=== PATIENT | male | born 1950 | race Caucasian/White ===

== ENCOUNTER → 2016-07-06 | Outpatient (CLI) | payer OTHER ==
[~2016-07-06] MED LIST: PRED-301 PO
[2016-07-06 17:41] LABS: MANUAL MICROSCOPIC REQUIRED? NO; REVIEW REQ? NO; URINE APPEARANCE CLEAR (CLEAR); URINE BILIRUBIN NEG (NEG); URINE COLOR YELLOW; URINE EPITHELIAL CELL AUTO 0-5 /lpf (0-5); URINE NITRITE NEG (NEG); URINE SPECIFIC GRAVITY 1.014 (1.000-1.030); UROBILINOGEN NEG (NEG); ZZUR CULT IF INDIC CLEAN CATCH NO
[2016-07-06 18:08] LABS: URINE PROTIEN/CREAT RATIO 0.1 (0-0.2); URINE TOTAL PROTEIN 11.3 mg/dl (0-11.9)
== END | disposition home or self-care (01) ==
LOC: C.LAB1850 15:56
PROVIDERS: ATTEND Internal Medicine Nephrology
DX: R31.29 Other microscopic hematuria (principal)

== ENCOUNTER → 2016-07-08 | Outpatient (CLI) | payer OTHER ==
--- NOTE | 2016-07-08 16:31 | DIAGNOSTIC IMAGING REPORT ---
ULTRASOUND KIDNEYS AND BLADDER CLINICAL HISTORY: Microscopic hematuria. COMPARISON STUDY: No priors. TECHNIQUE: Real-time, grayscale, and color flow sonography of the kidneys and bladder is performed. Images are reviewed in the transverse and longitudinal planes. FINDINGS: Kidneys: The kidneys are normal in size and echotexture. The right kidney measures 11.5 x 6.5 x 5.3 cm and the left kidney measures 11.0 x 5.4 x 6.1 cm. There is no hydronephrosis. No shadowing renal calculi are identified. A 2.6 cm exophytic cyst arises from the interpolar left kidney. A solid-appearing lesion arises from the upper pole of the left kidney and measures 5.7 cm. No perinephric fluid is identified. Bladder: The bladder is normal in appearance. Bilateral ureteral jets were seen. Upper abdomen: Survey images of the liver demonstrate hepatomegaly and hepatic steatosis. IMPRESSION: 1. The kidneys are normal in size and without hydronephrosis. 2. A 5.7 cm solid-appearing lesion arises from the upper pole of the left kidney. Renal mass is to be excluded. Follow-up with a contrast-enhanced renal mass protocol CT scan is recommended for further assessment. 3. The bladder is normal as visualized. 4. Hepatic steatosis. Electronically signed by: Florencio Mcdonald M.D. 07/08/2016 4:30 PM Dictated Date/Time: 07/08/2016 4:24 PM
== END | disposition home or self-care (01) ==
LOC: C.ULTR 15:45
PROVIDERS: ATTEND Internal Medicine Nephrology
DX: R31.29 Other microscopic hematuria (principal); N28.9 Disorder of kidney and ureter, unspecified; K76.0 Fatty (change of) liver, not elsewhere classified

== ENCOUNTER → 2016-07-22 | Outpatient (CLI) | payer OTHER ==
[~2016-07-22] MED LIST changes: +OPTIRAY 320 IV PRN
--- NOTE | 2016-07-22 15:11 | DIAGNOSTIC IMAGING REPORT ---
CT KIDNEY (ABDOMEN) COMBO CT DOSE: 1046.37 mGycm CLINICAL HISTORY: Left renal mass. Hematuria. TECHNIQUE: Unenhanced, nephrographic and delayed phase imaging of the abdomen was performed. Injection of 119 cc Optiray 320 IV was uneventful. COMPARISON STUDY: Chest CT February 16, 2016 and renal ultrasound July 08, 2016. FINDINGS: No renal calculi are present. There is no hydronephrosis. Note is made of a 5.2 cm cystic lesion arising from the medial upper pole of the left kidney which corresponds to the lesion shown on ultrasound of July 08, 2016. This lesion has a perceptible wall with no nodular component. An adjacent 2 cm lesion demonstrates no enhancement. This represents a hyperdense cyst. There is also a 2.3 cm hyperdense cyst within the lower pole of the left kidney. There are numerous subcentimeter lesions within both kidneys which are too small to characterize. There is no abdominal lymphadenopathy. No upper tract filling defects are identified. No suspicious osseous lesions are present. The liver, spleen, adrenal glands and pancreas are unremarkable. The caliber and wall thickness of visualized small and large bowel are normal. IMPRESSION: 1. 5.2 cm cystic lesion arising from the upper pole of the left kidney which represents to the lesion shown on prior ultrasound. This lesion has a perceptible wall with no nodular component. This lesion is indeterminate although a complex cyst is favored. This lesion is considered Bosniak 2F and a follow-up CT renal protocol in 6 months is recommended. 2. Several additional left renal lesions which represent hyperdense cysts. Numerous subcentimeter bilateral renal lesions are too small to characterize. Electronically signed by: Robert Waters M.D. 07/22/2016 3:10 PM Dictated Date/Time: 07/22/2016 9:23 AM
== END | disposition home or self-care (01) ==
LOC: C.CTS 08:52
PROVIDERS: ATTEND Internal Medicine Nephrology
DX: N28.89 Other specified disorders of kidney and ureter (principal); R31.29 Other microscopic hematuria

== ENCOUNTER → 2016-07-27 | Outpatient (CLI) | payer OTHER ==
[~2016-07-27] MED LIST changes: -OPTIRAY 320 IV PRN
== END | disposition home or self-care (01) ==
LOC: C.LAB1850 14:49
PROVIDERS: ATTEND Internal Medicine
DX: Z72.51 High risk heterosexual behavior (principal)

== ENCOUNTER → 2017-01-06 | Outpatient (CLI) | payer OTHER ==
--- NOTE | 2017-01-06 13:03 | DIAGNOSTIC IMAGING REPORT ---
(CHEST) THORAX WITH CLINICAL HISTORY: 66 years-old Male presenting with Moderate chronic obstructive pulmonary disease. TECHNIQUE: Multidetector CT imaging of the chest was performed after the administration of intravenous contrast. IV contrast: 119 mL of Optiray 320. A dose lowering technique was used consistent with the principles of ALARA (as low as reasonably achievable). COMPARISON: Chest x-ray from 10/23/2015. CT DOSE (mGy.cm): The estimated cumulative dose is 743.05 mGy.cm. FINDINGS: Mold Operator topogram: Unremarkable. On soft tissue windows, normal thyroid and thoracic inlet. No axillary, supraclavicular, hilar, or mediastinal lymphadenopathy. Minimal atherosclerosis of aortic arch. Normal heart size. Trace pericardial effusion. No pleural effusion. Exophytic left upper pole renal cyst noted. Focal subcentimeter hypodensity in the pancreatic neck body junction A represent focal fatty invagination or small cystic lesion. On lung windows, mild apical predominant emphysema. No focal infiltrate or nodule. Airways patent. Mild bronchial wall thickening may be present. On bone windows, degenerative changes of the thoracic spine. IMPRESSION: 1. Mild emphysematous changes predominantly at the apices and mild bronchial wall thickening are consistent with chronic obstructive pulmonary disease. No focal infiltrate or pulmonary nodule. Electronically signed by: Cordell Ho M.D. 01/06/2017 1:01 PM Dictated Date/Time: 01/06/2017 12:57 PM
== END | disposition home or self-care (01) ==
LOC: C.CTS 12:07
PROVIDERS: ATTEND Internal Medicine Pulmonary Disease
DX: J44.9 Chronic obstructive pulmonary disease, unspecified (principal)

== ENCOUNTER → 2017-01-06 | Outpatient (CLI) | payer OTHER ==
[~2017-01-06] MED LIST changes: +OPTIRAY 320 IV PRN
--- NOTE | 2017-01-06 12:58 | DIAGNOSTIC IMAGING REPORT ---
CT ABDOMEN COMBO CT DOSE: CLINICAL HISTORY: Microscopic hematuria. Renal mass. TECHNIQUE: Noncontrast images were obtained through the upper abdomen. A dynamic helical CT scan of the portal venous phase was performed during the injection 12 19 cc of Optiray 320. 5 minute delayed images through the upper abdomen were also acquired. A dose lowering technique was utilized adhering to the principles of ALARA. COMPARISON STUDY: 07/22/2016 FINDINGS: The visualized portions of the lung bases are unremarkable. No focal hepatic masses are visualized. There is no ductal dilatation. The gallbladder appears normal. No splenic masses are visualized. There is a stable 6 mm cyst within the pancreatic body, likely representing a side branch IPMN There are no transition zones indicate bowel obstruction. No acute inflammatory changes are visualized. There is no evidence of abdominal aortic dilatation. There is a stable 12 mm retrocrural cystic lesion. There is a 4.7 cm upper pole left renal cyst with a barely perceptible wall. Adjacent to this is a 16 mm slightly hyperdense cyst. There is a 23 mm mid pole left renal hyperdense cyst. There are additional small renal hypodensities which are felt to represent cysts. These remain stable. IMPRESSION: 1. Stable bilateral renal cysts. These include a 4.7 cm upper pole left renal cyst with a barely perceptible wall, but no nodularity. 12 month follow-up is recommended 2. 6 mm cyst within the pancreatic body, likely representing a side branch IPMN. This lesion can also be reevaluated in 12 months. Electronically signed by: Wilbur Arias M.D. 01/06/2017 12:57 PM Dictated Date/Time: 01/06/2017 12:49 PM
== END | disposition home or self-care (01) ==
LOC: C.CTS 12:11
PROVIDERS: ATTEND Internal Medicine Nephrology
DX: N28.89 Other specified disorders of kidney and ureter (principal); R31.29 Other microscopic hematuria; K86.2 Cyst of pancreas; J44.9 Chronic obstructive pulmonary disease, unspecified

== ENCOUNTER → 2017-01-26 | Outpatient (CLI) | payer OTHER ==
[~2017-01-26] MED LIST changes: -OPTIRAY 320 IV PRN
--- NOTE | 2017-01-26 14:48 | DIAGNOSTIC IMAGING REPORT ---
TWO VIEW CHEST CLINICAL HISTORY: Dyspnea on exertion. FINDINGS: PA and lateral chest radiographs are compared to study dated 10/23/2015 and correlated with chest CT dated 01/06/2017. The cardiomediastinal silhouette is unremarkable. Emphysema and chronic interstitial thickening are similar to previous. There is no airspace consolidation or pleural effusion. There is no pneumothorax. The bony thorax appears intact. IMPRESSION: Emphysema with no active disease in the chest. Electronically signed by: Florencio Mcdonald M.D. 01/26/2017 2:47 PM Dictated Date/Time: 01/26/2017 2:44 PM
[2017-01-26 15:24] LABS: BASO % 0.6 %; BASO ABS # 0.05 K/uL (0-0.2); COMPLETE YES; EOS % 1.4 %; HEMATOCRIT 44.1 % (42-52); IG% 0.3 %; LYMPH % 31.1 %; LYMPH ABS # 2.42 K/uL (1.2-3.4); MEAN CELL VOLUME 96.3 fL (80-100); MEAN CORPUSCULAR HEMOGLOBIN 34.3 pg (25-34); MEAN CORPUSCULAR HGB CONC 35.6 g/dl (32-36); MONO % 16.2 %; NEUT % 50.4 %; PLATELET COUNT 223 K/uL (130-400); RED BLOOD COUNT 4.58 M/uL (4.7-6.1); WHITE BLOOD COUNT 7.77 K/uL (4.8-10.8)
[2017-01-26 15:39] LABS: PARTIAL THROMBOPLASTIN RATIO 1.1; PROTHROMBIN TIME (PATIENT) 10.9 SECONDS (9.0-12.0)
[2017-01-26 15:51] LABS: ALT/SGPT 25 U/L (12-78); AST/SGOT 15 U/L (15-37); BLOOD UREA NITROGEN 11 mg/dl (7-18); BUN/CREATININE RATIO 14.1 (10-20); CALCIUM 8.6 mg/dl (8.5-10.1); CARBON DIOXIDE 27 mmol/L (21-32); CHLORIDE 105 mmol/L (98-107); CREATININE 0.76 mg/dl (0.60-1.40); GLUCOSE 80 mg/dl (70-99); MAGNESIUM 2.4 mg/dl (1.8-2.4); POTASSIUM 3.8 mmol/L (3.5-5.1); SODIUM 137 mmol/L (136-145); URINE APPEARANCE CLEAR (CLEAR); URINE BILIRUBIN NEG (NEG); URINE COLOR DK YELLOW; URINE EPITHELIAL CELL AUTO 0-5 /lpf (0-5); URINE NITRITE NEG (NEG); URINE SPECIFIC GRAVITY 1.023 (1.000-1.030); UROBILINOGEN NEG (NEG); ZZUR CULT IF INDIC CLEAN CATCH NO
[2017-01-26 15:54] LABS: ALB/GLOB RATIO 1.1 (0.9-2); ALKALINE PHOSPHATASE 81 U/L (45-117); PHOSPHORUS 2.8 mg/dl (2.5-4.9)
[2017-01-26 15:59] LABS: MANUAL MICROSCOPIC REQUIRED? NO; REVIEW REQ? NO
== END | disposition home or self-care (01) ==
LOC: C.RAD1850 14:02
PROVIDERS: ATTEND Internal Medicine
DX: R06.09 Other forms of dyspnea (principal); J44.9 Chronic obstructive pulmonary disease, unspecified

== ENCOUNTER → 2017-02-17 | Outpatient (CLI) | payer OTHER ==
[2017-02-17 18:10] LABS: BASO % 1.1 %; BASO ABS # 0.07 K/uL (0-0.2); COMPLETE YES; EOS % 1.8 %; HEMATOCRIT 42.6 % (42-52); IG% 0.3 %; LYMPH % 42.1 %; MEAN CELL VOLUME 96.4 fL (80-100); MEAN CORPUSCULAR HEMOGLOBIN 34.8 pg (25-34); MEAN CORPUSCULAR HGB CONC 36.2 g/dl (32-36); MEAN PLATELET VOLUME 9.7 fL (7.4-10.4); MONO % 12.8 %; NEUT % 41.9 %; PLATELET COUNT 200 K/uL (130-400); RED BLOOD COUNT 4.42 M/uL (4.7-6.1); WHITE BLOOD COUNT 6.18 K/uL (4.8-10.8)
[2017-02-17 18:20] LABS: ALT/SGPT 26 U/L (12-78); AST/SGOT 20 U/L (15-37); BLOOD UREA NITROGEN 9 mg/dl (7-18); BUN/CREATININE RATIO 12.8 (10-20); CALCIUM 8.1 mg/dl (8.5-10.1); CARBON DIOXIDE 27 mmol/L (21-32); CHLORIDE 104 mmol/L (98-107); CREATININE 0.69 mg/dl (0.60-1.40); GLUCOSE 81 mg/dl (70-99); POTASSIUM 4.2 mmol/L (3.5-5.1); SODIUM 138 mmol/L (136-145)
[2017-02-17 18:25] LABS: ALKALINE PHOSPHATASE 72 U/L (45-117)
[2017-02-19 13:16] LABS: HERPES SIMPLEX AB IGG-1 < 0.90 INDEX (< 0.90); HERPES SIMPLEX AB IGG-2 7.22 INDEX (< 0.90)
[2017-02-20 01:08] LABS: CHLAMYDIA TRACH RNA*** NOT DETECTED (NOT DETECTED); GC (NEIS GONORRHOEAE)RNA** NOT DETECTED (NOT DETECTED)
--- NOTE | 2017-02-26 12:33 | CODING QUERY NO DIAGNOSIS ---
SUPPORTING DIAGNOSIS NEEDED A supporting diagnosis is required for the test/procedure performed on this patient in order for us to be reimbursed by the patient's insurance. Please provide a supporting diagnosis for the following test/procedure listed below next to the test name along with your signature. *If there is no additional diagnosis for this patient that would support the following test/procedure please document that below next to the test/procedure. Test(s)/Procedure(s) that require a supporting diagnosis: * PSA DIAGNOSIS: Provider Signature: Date: Thank you Camilla Mendez [employer] Once completed, please kindly fax back to [phone] For questions please call [phone]
--- NOTE | 2017-03-09 06:40 | CODING QUERY MEDICAL NECESSITY ---
CQSUPPORTING DIAGNOSIS NEEDED A supporting diagnosis is required for the test/procedure performed on this patient in order for us to be reimbursed by the patient's insurance. Please provide a supporting diagnosis for the following test/procedure listed below next to the test name along with your signature. *If there is no additional diagnosis for this patient that would support the following test/procedure please document that below next to the test/procedure. Test(s)/Procedure(s) that require a supporting diagnosis: DOS 02/17/17 SCREENING FOR SEXUALLY TRASMITTED DISEASE Provider Signature: Date: Thank you Yoly [facility] [employer] Once completed, please kindly fax back to [phone] For questions please call [phone]
== END | disposition home or self-care (01) ==
LOC: C.LABBC 15:09
PROVIDERS: ATTEND Internal Medicine Rheumatology
DX: N28.1 Cyst of kidney, acquired (principal); R30.0 Dysuria; M06.4 Inflammatory polyarthropathy

== ENCOUNTER → 2017-09-14 | Outpatient (CLI) | payer OTHER ==
[2017-09-14 17:11] LABS: ALBUMIN 3.5 gm/dl (3.4-5.0); BLOOD UREA NITROGEN 12 mg/dl (7-18); CALCIUM 8.3 mg/dl (8.5-10.1); CARBON DIOXIDE 26 mmol/L (21-32); CHOLESTEROL 132 mg/dl (0-200); GLUCOSE 75 mg/dl (70-99); POTASSIUM 3.8 mmol/L (3.5-5.1); SODIUM 128 mmol/L (136-145)
[2017-09-14 17:15] LABS: LDL CHOLESTEROL CALCULATED 56 mg/dl; PHOSPHORUS 3.4 mg/dl (2.5-4.9)
== END | disposition home or self-care (01) ==
LOC: C.LAB1850 15:29
PROVIDERS: ATTEND Internal Medicine Nephrology
DX: R31.29 Other microscopic hematuria (principal); R06.09 Other forms of dyspnea

== ENCOUNTER → 2017-09-21 | Outpatient (CLI) | payer OTHER ==
--- NOTE | 2017-09-21 14:28 | DIAGNOSTIC IMAGING REPORT ---
RENAL ULTRASOUND HISTORY: GROSS HEMATURIA COMPARISON: Abdominal CT 01/06/2017. Renal ultrasound 07/08/2016. FINDINGS: Right kidney: 12.4 cm. No hydronephrosis. A few small cysts with the largest measuring 1.1 cm. Left kidney: 12.4 cm. No hydronephrosis. Multiple cysts are again noted. Dominant exophytic cyst within the upper pole measures 5.8 x 5.3 x 5.2 cm. This demonstrates internal echoes and is not significantly changed compared to the prior study. Bladder: No bladder wall thickening. The bilateral ureteral jets were identified. IMPRESSION: 1. No significant change in the slightly complex left upper pole renal lesion which measures 5.8 cm. Continued follow-up is recommended. 2. A few small right renal cysts. Electronically signed by: Jered Deleon M.D. 09/21/2017 2:27 PM Dictated Date/Time: 09/21/2017 2:23 PM
== END | disposition home or self-care (01) ==
LOC: C.ULTRBC 13:00
PROVIDERS: ATTEND Urology
DX: R31.0 Gross hematuria (principal); N39.0 Urinary tract infection, site not specified

== ENCOUNTER → 2018-01-17 | Outpatient (CLI) | payer OTHER ==
[~2018-01-17] MED LIST changes: +OPTIRAY 320 IV PRN
--- NOTE | 2018-01-17 10:17 | DIAGNOSTIC IMAGING REPORT ---
CT SCAN OF THE ABDOMEN AND PELVIS WITH IV CONTRAST CLINICAL HISTORY: Renal mass. COMPARISON STUDY: Abdominal CT dated 01/06/2017 and 07/22/2016. TECHNIQUE: Following the IV administration of 95 cc of Optiray 320, CT scan of the abdomen and pelvis is performed from the lung bases to the proximal femora. Images are reviewed in the axial, sagittal, and coronal planes. IV contrast was administered without complication. A dose lowering technique was utilized adhering to the principles of ALARA. CT DOSE: 297.44 mGy.cm FINDINGS: Lung bases: The heart is normal in size noting trace pericardial effusion. There are coronary artery calcifications. The lung bases are clear. There is a small hiatal hernia. Liver: The contrast-enhanced liver is normal in size and contour. The liver demonstrates diffusely diminished attenuation consistent with hepatic steatosis. There is no intrahepatic biliary ductal dilatation. The hepatic veins and portal veins are patent. Gallbladder: Unremarkable. Spleen: Normal in size and attenuation. Pancreas: There is 11 mm ovoid cystic lesion identified in the pancreatic neck, similar in to previous. The appearance is typical for small sidebranch IPMN. Adrenal glands: Unremarkable. Kidneys: The contrast enhanced kidneys are normal in size and without hydronephrosis. The kidneys enhance symmetrically. There is a retroaortic left renal vein. No enhancing cortical mass is identified. There is unchanged appearance of a 4.6 cm thick walled water attenuation exophytic lesion arising from the upper pole of the left kidney. A 1.8 cm complex exophytic cyst in the left upper pole on image #74 and a 2.7 cm complex exophytic cyst with a thin peripheral calcification in the interpolar left kidney on image #135 are also unchanged. Additional subcentimeter cortical hypodensities also likely represent cysts but are too small for definitive characterization. Abdominal vasculature: The abdominal aorta is normal in course and caliber noting moderate atherosclerotic calcification. Bowel: The small bowel and colon are normal in course and caliber. The appendix is well-visualized and normal. Peritoneum: There is no intraperitoneal free air or abdominal ascites. There is a small fat-containing umbilical hernia. Lymphadenopathy: None. Pelvic viscera: The prostate gland is enlarged and heterogeneous noting median lobe hypertrophy. The bladder wall appears thickened and trabeculated suggesting chronic outlet obstruction. There are surgical clips noted along the spermatic cord. Skeletal structures: There is mild to moderate lumbosacral spondylosis. No lytic or blastic lesions are seen. IMPRESSION: 1. No enhancing cortical mass is identified. 2. A 4.6 cm thick walled exophytic cyst arising from left upper pole has not significantly changed from 01/06/2017. This is consistent with Bosniak 2F cyst and a one year follow-up is recommended. 3. Additional complex cysts and too small to characterize cortical hypodensities in both kidneys are unchanged. 4. Hepatic steatosis. 5. Additional findings as above. Electronically signed by: Florencio Mcdonald M.D. 01/17/2018 10:16 AM Dictated Date/Time: 01/17/2018 10:02 AM
== END | disposition home or self-care (01) ==
LOC: C.CTS 09:21
PROVIDERS: ATTEND Internal Medicine Nephrology
DX: N28.89 Other specified disorders of kidney and ureter (principal); N28.1 Cyst of kidney, acquired; K76.0 Fatty (change of) liver, not elsewhere classified

== ENCOUNTER 2019-08-01 03:01 | Inpatient (IN) ==
[2019-08-01] MEDS ORDERED: ALBUT/IPRATROP 3MG/0.5MG NEB 3 ML VIAL NEB ONE (03:24)
[2019-08-01] MEDS ORDERED: methylPREDNISolone 125 MG/2 ML VIAL IV STA (03:24)
[2019-08-01] MEDS ORDERED: SODIUM CHLORIDE 0.9% 1000ML 1,000 ML IV ONE (03:24)
--- NOTE | 2019-08-01 03:33 | Emergency Department Note ---
ED Provider Note Name: GUILLE SURESH Age: 69 Arrives Via: Walk-In Informant: Patient CC: Shortness of breath, Jaw Pain, Left Arm weakness HPI: 69M arrives for evaluation of: Left Arm weakness: 12 hours left arm weakness. Primarily in hand. 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 Has not dropped anything though can't hold things properly. Notes entire arm feels sore. Notes mild associated headache. Denies trauma to injury. He is ambidextrous and states he has never had issues like this before. History of arthritis but denies this being like previous flares. Denies swelling of arm. No other neuro deficits. No medications taken for this. Shortness of breath: Patient notes one day of worsening breathing difficulty. Feels like entire chest is tight and he can't get a deep breath. Notes associated weakness, fatigue and non-productive cough. Worse with exertion. Used albuterol inhaler without improvement. Better if he stays still. No recent fevers, syncope, runny nose. No history of DVT/PE, recent surg, recent travel, family history of DVT/PE. Left jaw pain: 24 hours left jaw pain. Swelling left lower jaw this evening. Worse with eating. Admits multiple bad teeth in jaw. No fevers, tongue pain/swelling, difficulty swallowing nor other symptoms with this. No med ications taken for this. ROS: See above HPI for pertinent positives & negatives. A total of 10 systems reviewed and were otherwise negative. Past Medical History:Arthritis, COPD Past Surgical History:Cataract surgery Family History:None Social History:Smoker,occasional etoh, no drug use Home Medications:None regular Allergies:NKDA Vitals:Blood Pressure 125/73, Pulse 64, Resp 30, T 36.4C, O2 99% on RA Physical Exam: GENERAL: Patient is anxious appearing and in mild distress. EYES: No scleral icterus, unremarkable pupils. ENT: TTP over left lower jaw line, mild swelling. Multiple carious cracked teeth. Mucous membranes moist, no nasal congestion. NECK: No masses appreciated, nomeningismus, trachea is midline. RESPIRATORY: Tachypnea/dyspnea. Diffuse wheezing and tight lung sounds, no rhonchi. CARDIOVASCULAR: Regular rate and rhythm.No murmurs, rubs, gallops appreciated. GASTROINTESTINAL: Abdomen soft, non-tender, no peritonitis.Bowel sounds positive.No masses appreciated. BACK: No midline tenderness, no CVA tenderness EXTREMITIES: Normal motion all extremities, no cyanosis, no edema. NEUROLOGIC: Alert and oriented, no acute motor or sensory deficits, no focal weakness, cranial nerves grossly intact. SKIN: No rash, no jaundice, no diaphoresis. ED Course: Prior Medical Record, Triage/Nursing Notes, Medications, Allergies reviewed by Me Vital Signs: reviewed and remarkable for tachypnea Labs:Reviewed and remarkable for no significant abnormalities Interventions: saline lock, nss bolus, duoneb 1 hr neb, asa 324mg PO, Clinda 600mg IV, Solumedrol 125mg IV Imaging:X ray results are stated below per my interpretation: Chest: 1 view: No infiltrate, no effusion, normal cardiac border. Reassessments/Times: Multiple, improved airation though diffuse wheezing louder Blood pressure:Elevated - Referred to PCP - Lopeno to be Situational. Disposition:HOspitalization Differentials:COPD, Stroke, INfection, Pna, ACS, Dissection, Pneumothorax, ICH, PE, DVT amongst other pathologies. Medical Decision Makin yr old male with essentially 3 issues of shob, left arm/hand weakness and left facial pain. While stroke of concern he is not TPA candidate given time and truly has NIH [address] on exam. Was sent CT which was negative for head. No active bleed thus out of abundance of caution he was given ASA 324mg PO while awaiting further inpatient work up. With his history I suspect this is arthritis of wrist but unclear why involves discomfort of entire left arm. There was no evidence of acs. He has SHOB which by exam and history of acute COPD exacerbation. Dimer negative and CXR clear. Not pneumonia nor PE and not consistent with dissection. Left face seems very much dental and I do not believe is stroke related nor thrombosis. Given IV clinda for this as will also cover lungs. Labs remarkable for mild hyponatremia which is new for patient of uncertain etiology. As he continues to have copd flare despite extensive treatment I discussed with hospitalist who will like to bring in for further work-up and evaluation. Impression: Acute Exacerbation of Chronic Obstructive Pulmonary Disease Dental Infection Acute Hyponatremia Left Hand Weakness Alexandro Park MD Impression & Plan Acute exacerbation of chronic obstructive pulmonary disease, Dental infection, Acute hyponatremia, Left hand weakness Past Med/Surg History Medical History (Updated 08/01/19 @ 06:36 by Alexandro Park MD) Arthritis (Chronic) COPD (chronic obstructive pulmonary disease) (Chronic) Inflammatory arthritis Kidney mass (Chronic) Tobacco use disorder, continuous Surgical History History of cataract extraction with lens replacement (Resolved) Family History (Updated 05/26/19 @ 15:54 by Cholo Patel DO) Denies family history of Kidney disease Social History (Updated 05/26/19 @ 15:55 by Cholo Patel DO) Preferred Language: Zambian Communication Ability: Effective Greenhouse Staff Required: No Beliefs That Will Affect Care: None marital status: Single Current Living Situation: Alone Feels Safe at Home: Yes Smoking Status: Current every day smoker Tobacco Type: cigarettes ; Cigarettes Per Day: 20 ; Hx Alcohol Use: Yes Alcohol type: beer Hx Substance Use: No Results & Data Vital Signs Vital Signs - 24 hr 08/01/19 03:07 08/01/19 03:29 08/01/19 03:33 Temperature 36.4 C L Temperature Source Oral Pulse Rate 64 Pulse Rate [Bilateral Apical] 58 L Pulse Rate [Right Finger] Respiratory Rate 30 H 22 Respiratory Effort / Characteristics Spontaneous Respiratory Depth Deep Respiratory Pattern Regular Blood Pressure 125/73 Blood Pressure [Left Arm] 156/106 H Blood Pressure Mean 90 Blood Pressure Mean [Left Arm] 122 Blood Pressure Position [Left Arm] Pulse Oximetry 99 99 Oxygen Delivery Method Room Air Oxygen Flow Rate Sepsis Recent Fever Within 48 Hours No Sepsis New/Unexplained Change in Mental Status No Sepsis Action Taken by Nursing No Action Required 08/01/19 03:53 08/01/19 03:58 08/01/19 04:05 Temperature Temperature Source Pulse Rate Pulse Rate [Bilateral Apical] 60 20 L Pulse Rate [Right Finger] 67 51 L Respiratory Rate 24 22 99 H Respiratory Effort / Characteristics Spontaneous Short of Breath SOB on Exertion Non-Labored Respiratory Depth Normal Respiratory Pattern Blood Pressure Blood Pressure [Left Arm] 152/73 H 152/73 H Blood Pressure Mean Blood Pressure Mean [Left Arm] 99 99 Blood Pressure Position [Left Arm] Sitting Pulse Oximetry 100 100 Oxygen Delivery Method Room Air Nebulizer Nebulizer Oxygen Flow Rate 10 Sepsis Recent Fever Within 48 Hours Sepsis New/Unexplained Change in Mental Status Sepsis Action Taken by Nursing Laboratory Data Result diagrams: 08/01/19 03:21 08/02/19 06:38 Lab Results 08/01/19 08/01/1920 Range/Units 03:21 03:21 03:21 WBC 9.23 (4.8-10.8) K/uL RBC 4.56 L (4.7-6.1) M/uL Hgb 15.2 (14.0-18.0) g/dL Hct 42.4 (42-52) % MCV 93.0 (80-100) fL MCH 33.3 (25-34) pg MCHC 35.8 (32-36) g/dL RDW Std Deviation 44.7 (36.4-46.3) fL RDW Coeff of Gordy 13.2 (11.5-14.5) % Plt Count 202 (130-400) K/uL MPV 9.6 (7.4-10.4) fL Immature Gran % (Auto) 0.2 % Neut % (Auto) 46.8 % Lymph % (Auto) 34.8 % Addison % (Auto) 16.5 % Eos % (Auto) 1.4 % Baso % (Auto) 0.3 % Immature Gran # (Auto) 0.02 (0.00-0.02) K/uL Neut # (Auto) 4.32 (1.4-6.5) K/uL Lymph # (Auto) 3.21 (1.2-3.4) K/uL Addison # (Auto) 1.52 H (0.11-0.59) K/uL Eos # (Auto) 0.13 (0-0.5) K/uL Baso # (Auto) 0.03 (0-0.2) K/uL D-Dimer 490 (0-500) ug/L FEU Sodium 128 L (136-145) mmol/L Potassium 4.0 (3.5-5.1) mmol/L Chloride 95 L (98-107) mmol/L Carbon Dioxide 25 (21-32) mmol/L Anion Gap 8.0 (3-11) BUN 9 (7-18) mg/dl Creatinine 0.64 (0.6-1.4) mg/dl Est Cr Clr Drug Dosing 114.1 ml/min Est GFR ( Amer) 116.6 Est GFR (Non-Af Amer) 100.6 BUN/Creatinine Ratio 13.7 (10-20) Glucose 90 (70-99) mg/dl Osmolality (280-300) mOsm/kg Calcium 8.7 (8.5-10.1) mg/dl Magnesium 2.1 (1.8-2.4) mg/dl Troponin I < 0.015 (0-0.045) ng/ml 08/01/19 Range/Units 03:21 WBC (4.8-10.8) K/uL RBC (4.7-6.1) M/uL Hgb (14.0-18.0) g/dL Hct (42-52) % MCV (80-100) fL MCH (25-34) pg MCHC (32-36) g/dL RDW Std Deviation (36.4-46.3) fL RDW Coeff of Gordy (11.5-14.5) % Plt Count (130-400) K/uL MPV (7.4-10.4) fL Immature Gran % (Auto) % Neut % (Auto) % Lymph % (Auto) % Addison % (Auto) % Eos % (Auto) % Baso % (Auto) % Immature Gran # (Auto) (0.00-0.02) K/uL Neut # (Auto) (1.4-6.5) K/uL Lymph # (Auto) (1.2-3.4) K/uL Addison # (Auto) (0.11-0.59) K/uL Eos # (Auto) (0-0.5) K/uL Baso # (Auto) (0-0.2) K/uL D-Dimer (0-500) ug/L FEU Sodium (136-145) mmol/L Potassium (3.5-5.1) mmol/L Chloride (98-107) mmol/L Carbon Dioxide (21-32) mmol/L Anion Gap (3-11) BUN (7-18) mg/dl Creatinine (0.6-1.4) mg/dl Est Cr Clr Drug Dosing ml/min Est GFR ( Amer) Est GFR (Non-Af Amer) BUN/Creatinine Ratio (10-20) Glucose (70-99) mg/dl Osmolality 264 L (280-300) mOsm/kg Calcium (8.5-10.1) mg/dl Magnesium (1.8-2.4) mg/dl Troponin I (0-0.045) ng/ml Administered Medications Discontinued Medications Al Hydrox/Mg Hydrox/Simethicone (Maalox) 15 ml PO Q4H PRN PRN Reason: Dyspepsia Stop: 08/31/19 07:59 Last Admin: 08/01/19 14:29 Dose: 15 ml Documented by: [id number] Albuterol (Duoneb) 12 ml NEB ONE ONE Stop: 08/01/19 03:25 Last Admin: 08/01/19 03:45 Dose: 12 ml Documented by: [id number] Albuterol (Duoneb) 3 ml NEB QIDR SANDRA Stop: 08/31/19 07:59 Last Admin: 08/02/19 11:23 Dose: 3 ml Documented by: [id number] Admin: 08/02/19 07:39 Dose: 3 ml Documented by: [id number] Admin: 08/01/19 18:59 Dose: 3 ml Documented by: [id number] Admin: 08/01/19 14:57 Dose: 3 ml Documented by: [id number] Admin: 08/01/19 11:04 Dose: 3 ml Documented by: [id number] Admin: 08/01/19 08:21 Dose: Not Given Documented by: [id number] Albuterol (Ventolin Hfa) 2 puffs INH Q6H [facility] Stop: 09/01/19 11:59 Last Admin: 08/02/19 12:29 Dose: 2 puffs Documented by: [id number] Aspirin (Aspirin) 324 mg PO NOW STA Stop: 08/01/19 05:16 Last Admin: 08/01/19 05:19 Dose: 324 mg Documented by: [id number] Aspirin (Ecotrin Ectab) 81 mg PO QAM SANDRA Stop: 08/31/19 08:59 Last Admin: 08/02/19 08:15 Dose: 81 mg Documented by: [id number] Admin: 08/01/19 10:30 Dose: 81 mg Documented by: [id number] Fluticasone/Vilanterol (Breo Ellipta 100/25 Mcg Inh) 1 puffs INH DAILY [facility] Stop: 09/01/19 11:29 Last Admin: 08/02/19 12:28 Dose: 1 puffs Documented by: [id number] Guaifenesin (Mucinex) 600 mg PO Q12 SANDRA Stop: 08/31/19 08:59 Last Admin: 08/01/19 10:30 Dose: 600 mg Documented by: [id number] Heparin Sodium (Porcine) (Heparin Sodium (Porcine)) 5,000 units SQ Q12 SANDRA Stop: 08/31/19 08:59 Last Admin: 08/02/19 08:12 Dose: 5,000 units Documented by: [id number] Cosigned by: [id number] Admin: 08/01/19 21:25 Dose: 5,000 units Documented by: [id number] Cosigned by: [id number] Admin: 08/01/19 10:28 Dose: 5,000 units Documented by: [id number] Cosigned by: [id number] Sodium Chloride (Nss 1000ml) 1,000 mls @ 999 mls/hr IV .Q1H1M ONE Stop: 08/01/19 04:24 Last Infusion: 08/01/19 04:49 Dose: 0 mls/hr Documented by: [id number] Admin: 08/01/19 03:39 Dose: 999 mls/hr Documented by: [id number] Clindamycin Phosphate 600 mg/ (Dextrose) 54 mls @ 100 mls/hr IV ONE ONE Stop: 08/01/19 05:52 Last Infusion: 08/01/19 06:10 Dose: 0 mls/hr Documented by: [id number] Admin: 08/01/19 05:41 Dose: 100 mls/hr Documented by: [id number] Ceftriaxone Sodium 2,000 mg/ (Dextrose) 70 mls @ 100 mls/hr IV DAILY SANDRA; Protocol Stop: 08/08/19 08:59 Last Infusion: 08/01/19 11:10 Dose: 0 mls/hr Documented by: [id number] Admin: 08/01/19 10:27 Dose: 100 mls/hr Documented by: [id number] Clindamycin Phosphate 600 mg/ (Dextrose) 54 mls @ 100 mls/hr IV Q8H SANDRA Stop: 08/11/19 13:59 Last Infusion: 08/02/19 05:34 Dose: 0 mls/hr Documented by: [id number] Admin: 08/02/19 05:05 Dose: 100 mls/hr Documented by: [id number] Infusion: 08/01/19 22:05 Dose: 0 mls/hr Documented by: [id number] Admin: 08/01/19 21:24 Dose: 100 mls/hr Documented by: [id number] Infusion: 08/01/19 15:12 Dose: 0 mls/hr Documented by: [id number] Admin: 08/01/19 14:27 Dose: 100 mls/hr Documented by: [id number] Methylprednisolone 40 mg/ (Syringe) 0.64 mls @ 1.5 mls/min IV Q8H [facility] Stop: 08/31/19 09:59 Last Admin: 08/01/19 10:29 Dose: 1.5 mls/min Documented by: [id number] Magnesium Hydroxide (Milk Of Magnesia) 30 ml PO Q12H PRN PRN Reason: Constipation Stop: 08/31/19 07:59 Last Admin: 08/02/19 00:09 Dose: 30 ml Documented by: [id number] Methylprednisolone (Solumedrol) 125 mg IV NOW STA Stop: 08/01/19 03:25 Last Admin: 08/01/19 03:39 Dose: 125 mg Documented by: [id number] Miscellaneous (Remove Nicoderm Patch) 1 ea N/A DAILY@0859 [facility] Stop: 09/01/19 08:58 Last Admin: 08/02/19 08:17 Dose: 1 ea Documented by: [id number] Nicotine (Nicoderm Cq) 21 mg TD QAM [facility] Stop: 08/31/19 14:59 Last Admin: 08/02/19 08:15 Dose: 21 mg Documented by: [id number] Admin: 08/01/19 15:30 Dose: 21 mg Documented by: [id number] Prednisone (Prednisone) 40 mg PO DAILY [facility] Stop: 09/01/19 08:59 Last Admin: 08/02/19 08:14 Dose: 40 mg Documented by: [id number] Sulfasalazine (Azulfidine Delayed Rel) 1,000 mg PO BIDM [facility] Stop: 08/31/19 08:29 Last Admin: 08/02/19 08:13 Dose: 1,000 mg Documented by: [id number] Admin: 08/01/19 17:20 Dose: 1,000 mg Documented by: [id number] Admin: 08/01/19 10:29 Dose: 1,000 mg Documented by: [id number] Discharge Plan Visit Data *Final* Discharge Date/Time: 08/01/19 07:35 Chief Complaint: Respiratory Problems Stated Complaint: HAVING TROUBLE BREATHING ED Provider: Alexandro Park Discharge Problem: Acute exacerbation of chronic obstructive pulmonary disease, Dental infection, Acute hyponatremia, Left hand weakness Patient Disposition: Admitted As Inpatient Discharge Instructions Interventions: ED Discharge Assessment Last Done: 08/01/19 07:35
[2019-08-01 03:42] LABS: Basophils # (auto) 0.03 K/uL (0-0.2); Basophils % (auto) 0.3 %; Eosinophils # (auto) 0.13 K/uL (0-0.5); Eosinophils % (auto) 1.4 %; Hematocrit (blood only) 42.4 % (42-52); Hemoglobin 15.2 g/dL (14.0-18.0); Immature Granulocytes # (auto) 0.02 K/uL (0.00-0.02); Immature Granulocytes % (auto) 0.2 %; Lymphocytes # (auto) 3.21 K/uL (1.2-3.4); Lymphocytes % (auto) 34.8 %; Mean Corpuscular Hemoglobin 33.3 pg (25-34); Mean Corpuscular Hgb Conc 35.8 g/dL (32-36); Mean Platelet Volume 9.6 fL (7.4-10.4); Monocytes # (auto) 1.52 K/uL (0.11-0.59); Monocytes % (auto) 16.5 %; Neutrophils # (auto) 4.32 K/uL (1.4-6.5); Neutrophils % (auto) 46.8 %; Platelet Count 202 K/uL (130-400); RDW Coefficient of Variation 13.2 % (11.5-14.5); RDW Standard Deviation 44.7 fL (36.4-46.3); Red Blood Count 4.56 M/uL (4.7-6.1); White Blood Count 9.23 K/uL (4.8-10.8)
[2019-08-01 03:51] LABS: D Dimer 490 ug/L FEU (0-500)
[2019-08-01 03:59] LABS: BUN Creatinine Ratio 13.7 (10-20); Blood Urea Nitrogen 9 mg/dl (7-18); Calcium 8.7 mg/dl (8.5-10.1); Carbon Dioxide 25 mmol/L (21-32); Chloride 95 mmol/L (98-107); Creatinine Clr Calc Pharmacy 114.1 ml/min; Est GFR (African American) 116.6; Est GFR (Non-African American) 100.6; Glucose 90 mg/dl (70-99); Magnesium 2.1 mg/dl (1.8-2.4); Sodium 128 mmol/L (136-145)
[2019-08-01 04:04] LABS: Troponin I < 0.015 ng/ml (0-0.045)
[2019-08-01] MEDS ORDERED: ASPIRIN CHEW 324 MG PO STA (05:15)
[2019-08-01] MEDS ORDERED: CLINDAMYCIN 600 MG in DEXTROSE 5% 50 ML IV ONE (05:20)
--- NOTE | 2019-08-01 05:49 | History & Physical Report ---
Date of Service August 01, 2019 Assessment & Plan (1) Chest tightness: Chest tightness- Differential includes cardiac, pulmonary, and arthritic. The patient will be admitted to telemetry for serial cardiac enzymes, serial EKG's, cardiac rhythm monitoring and a 2-D echocardiogram with Dopplers. Present on Admission?: Yes (2) COPD exacerbation: Admit to monitored bed. Given Solu-Medrol 125 mg IV in the ED, and continued at 40 mg IV every 8 hours. Duonebs every 4 hours while awake and every 2 hours when necessary. Ceftriaxone 1 g IV daily. Clindamycin 600 mg IV every 8 hours. Guaifenesin extended release 600 mg p.o. twice daily Present on Admission?: Yes (3) Dental infection: Treat with ceftriaxone and clindamycin IV as above Present on Admission?: Yes (4) Hyponatremia: Sodium 128 upon admission, with range 128-136, with previous isolated value 128 on 09/14/2017. Check serum and urine osmolality. May be secondary to prednisone use. Repeat laboratories in a.m. Present on Admission?: Yes (5) Carpal tunnel syndrome: History of previous carpal tunnel release surgery. His decreased machine maintenance mechanic strength and decreased sensation follow the first 3 digits on his left hand. There is some swelling of the MCPs of those digits, which may be contributing to and/or causing his symptoms as well. The symptoms do not appear to be cardiac related. Present on Admission?: Yes (6) Inflammatory arthritis: Has swelling of the first 3 MCPs as noted above. Continue with sulfasalazine 1000 mg p.o. twice daily. Hold prednisone. We will see how much benefit he gets from the methylprednisolone IV which we have used to treat his lungs. Present on Admission?: Yes (7) Tobacco use disorder, continuous: Counseling cessation discussed. Present on Admission?: Yes History of Present Illness Chief Complaint: The patient presents to the emergency department with complaint of chest tightness and shortness of breath, left lower jaw pain, and left hand numbness and weakness. Primary Care Provider: Lorenzo Wong MD The patient is a 69-year-old male with a past medical history including kidney mass, inflammatory arthritis, COPD, carpal tunnel syndrome, hernia cerebri and tobacco use disorder. He presents to the emergency department with complaint of decreased chest tightness and dyspnea on exertion, pain and swelling in the left lower jaw, and decreased machine maintenance mechanic strength in the left hand over the past 12 hours. He denies any recent trauma. He does have a history of inflammatory arthritis for which he takes sulfasalazine and prednisone. He does also continue to smoke tobacco. He denies any productive cough. He does not take aspirin. Allergies Allergy/AdvReac Type Severity Reaction Status Date / Time No Known Allergies Allergy Unknown Unverified 08/01/19 04:18 Home Medications Home Medications Medication Instructions Recorded Confirmed Type prednisone 5 mg tablet 5 mg PO DAILY #90 tab 05/10/19 08/01/19 Rx tadalafil 5 mg tablet 5 mg PO DAILY #30 tab 05/26/19 08/01/19 Rx sulfasalazine 1,000 mg PO BID 08/01/19 08/01/19 History Past Med/Surg History Family History (Updated 05/26/19 @ 15:54 by Cholo Patel DO) Denies family history of Kidney disease Social History (Updated 05/26/19 @ 15:55 by Cholo Patel DO) Preferred Language: Kinyarwanda Communication Ability: Effective 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 Beliefs That Will Affect Care: None Current Living Situation: Alone Feels Safe at Home: Yes Smoking Status: Current every day smoker Tobacco Type: cigarettes ; Cigarettes Per Day: 20 ; Do You Dip or Chew Tobacco: No ; Hx Alcohol Use: Yes Alcohol type: beer Hx Substance Use: No Review of Systems Review of Systems: The patient denies palpitations, cough, lower extremity swelling, sore throat, fevers, chills, sweats, weight change, fatigue, nausea, vomiting, diarrhea , constipation, abdominal pain, pelvic pain, blood in urine or stool, dysuria, urinary frequency or urgency, lightheadedness, dizziness, headache, memory loss, loss of consciousness, rash, abnormal bruising or bleeding, imbalance, focal weakness, numbness or tingling in right arm or bilateral legs, generalized arthralgias or myalgias, back or neck pain, or night sweats. The review of systems is otherwise negative other than for that already noted above, and at least 10 systems have been reviewed. Physical Exam Physical Exam: The patient is awake, alert and oriented 3, well developed and well nourished, normocephalic and atraumatic, lying in bed and in no acute distress. HEENT--PERRL, EOMI, mucous membranes and oropharynx normal. Neck--supple. No JVD. No bruits. Thyroid normal, trachea midline, no adenopathy. Heart--normal S1 and S2. No murmurs, rubs or gallops. Lungs--coarse breath sounds and wheezes bilaterally. Mild respiratory distress, no accessory muscle use. Abdomen--normal bowel sounds and soft. Nontender. Nondistended Extremities--no cyanosis or clubbing. No edema. There are good distal pulses b/l. Dermatologic--normal skin turgor, normal color, no abnormal lymph nodes, no rash. Neurologic--cranial nerves II through XII grossly intact. Rheumatologic--normal range of motion. Psychiatric--normal affect. Results & Data Vital Signs (Past 12 Hours) Vital Signs Temp Pulse Pulse Pulse Resp BP BP 08/01/19 04:50 78 22 134/82 08/01/19 04:05 51 L 20 152/73 H 08/01/19 03:58 60 22 152/73 H 08/01/19 03:53 67 24 08/01/19 03:33 58 L 22 156/106 H 08/01/19 03:07 97.5 F L 64 30 H 125/73 Pulse Ox 08/01/19 04:50 99 08/01/19 04:05 99 08/01/19 03:58 100 08/01/19 03:53 100 08/01/19 03:33 99 08/01/19 03:07 99 Laboratory Results Laboratory Results WBC 9.23 K/uL (4.8-10.8) 08/01/19 03:21 RBC 4.56 M/uL (4.7-6.1) L 08/01/19 03:21 Hgb 15.2 g/dL (14.0-18.0) 08/01/19 03:21 Hct 42.4 % (42-52) 08/01/19 03:21 MCV 93.0 fL (80-100) 08/01/19 03:21 MCH 33.3 pg (25-34) 08/01/19 03:21 MCHC 35.8 g/dL (32-36) 08/01/19 03:21 RDW Std Deviation 44.7 fL (36.4-46.3) 08/01/19 03:21 RDW Coeff of Gordy 13.2 % (11.5-14.5) 08/01/19 03:21 Plt Count 202 K/uL (130-400) 08/01/19 03:21 MPV 9.6 fL (7.4-10.4) 08/01/19 03:21 Immature Gran % (Auto) 0.2 % 08/01/19 03:21 Neut % (Auto) 46.8 % 08/01/19 03:21 Lymph % (Auto) 34.8 % 08/01/19 03:21 Coffee % (Auto) 16.5 % 08/01/19 03:21 Eos % (Auto) 1.4 % 08/01/19 03:21 Baso % (Auto) 0.3 % 08/01/19 03:21 Immature Gran # (Auto) 0.02 K/uL (0.00-0.02) 08/01/19 03:21 Neut # (Auto) 4.32 K/uL (1.4-6.5) 08/01/19 03:21 Lymph # (Auto) 3.21 K/uL (1.2-3.4) 08/01/19 03:21 Coffee # (Auto) 1.52 K/uL (0.11-0.59) H 08/01/19 03:21 Eos # (Auto) 0.13 K/uL (0-0.5) 08/01/19 03:21 Baso # (Auto) 0.03 K/uL (0-0.2) 08/01/19 03:21 D-Dimer 490 ug/L FEU (0-500) 08/01/19 03:21 Sodium 128 mmol/L (136-145) L 08/01/19 03:21 Potassium 4.0 mmol/L (3.5-5.1) 08/01/19 03:21 Chloride 95 mmol/L (98-107) L 08/01/19 03:21 Carbon Dioxide 25 mmol/L (21-32) 08/01/19 03:21 Anion Gap 8.0 (3-11) 08/01/19 03:21 BUN 9 mg/dl (7-18) 08/01/19 03:21 Creatinine 0.64 mg/dl (0.6-1.4) 08/01/19 03:21 Est Cr Clr Drug Dosing 114.1 ml/min 08/01/19 03:21 Est GFR ( Amer) 116.6 08/01/19 03:21 Est GFR (Non-Af Amer) 100.6 08/01/19 03:21 BUN/Creatinine Ratio 13.7 (10-20) 08/01/19 03:21 Glucose 90 mg/dl (70-99) 08/01/19 03:21 Calcium 8.7 mg/dl (8.5-10.1) 08/01/19 03:21 Magnesium 2.1 mg/dl (1.8-2.4) 08/01/19 03:21 Troponin I < 0.015 ng/ml (0-0.045) 08/01/19 03:21 Diagnostic Findings [facility] Patient: GUILLE SURESH (Male) : 52 Status: ER Date: 08/01/19 04:14 Room #: History: LEFT ARM WEAKNESS Slices: 66 Priors: Tech: Jeramy Blackwell @ [phone] Exams: CT HEAD Accession Numbers: [id number] Preliminary Findings Only See Final Report For Complete Findings CT HEAD: No acute intracranial hemorrhage, mass effect, midline shift, hydrocephalus or acute infarct. Low-density in the bilateral periventricular white matter is nons pecific but probably represents chronic small vessel ischemic disease. Bony structures are intact. Soft tissues are unremarkable. Radiologist: Ghulam Merino MD Study ready at 04:17 and initial results transmitted at 05:14 *This report constitutes a preliminary interpretation only. Non-acute findings felt to be unrelated to the clinical presentation may not be discussed in this report. The study will be interpreted and a final report will be generated by the local Radiologist the following shift. To reach the hospital radiology department call [phone]. If a discrepancy is found between the preliminary and final interpretations of this study, please notify us via our Client Portal at [email or web address].You can also fax this report with a description of the discrepancy, or include the final report, to our daytime fax number [phone].If faxing, please indicate the severity of discrepancy using one of the following categories: [ ] 1 - Agree/Informational [ ] 2 - Unlikely to Affect Management [ ] 3 - Possible Eventual Change of Management [ ] 4 - Probable Immediate Change of Management For all other patient related information, please fax us at [phone]. [id number] Code Status & VTE Plan Code Status Full code VTE Prophylaxis Plan VTE Prophylaxis will be ordered: Yes PG Care Time/CCT Total # of Minutes Spent Total Time Spent with Patient: Total time spent is greater than 50% in coordination of care (as documented) at patient's floor/unit and/or counseling patient: Coding Level of Care Code 66113 Initial Inpt Care Lvl 3 Diagnoses Chest tightness R07.89 COPD exacerbation J44.1 Dental infection K04.7 Hyponatremia E87.1 Carpal tunnel syndrome G56.00 Inflammatory arthritis M19.90 Tobacco use disorder, continuous F17.209
--- NOTE | 2019-08-01 06:26 | XRay Report ---
XR chest 1V portable CLINICAL HISTORY: SHOB dyspnea COMPARISON STUDY: No previous studies for comparison. FINDINGS: The bones soft tissues and hemidiaphragms are normal. The cardiomediastinal silhouette is n ormal. The lungs are clear. The pulmonary vasculature is normal. IMPRESSION: Negative chest. ACT 112: Negative or not required by law. The above report was generated using voice recognition software. It may contain grammatical, syntax or spelling errors. Electronically signed by: Paolo Carroll M.D. 08/01/2019 6:25 AM
--- NOTE | 2019-08-01 07:05 | CT Scan Report ---
HEAD CT NONCONTRAST CT DOSE: 729.78 mGycm HISTORY: left arm weakness TECHNIQUE: Multiaxial CT images of the head were performed without the use of intravenous contrast. A utomated exposure control was utilized for this study. A dose lowering technique was utilized adheri ng to the principles of ALARA. Comparison: Head CT 03/19/2015. Findings: The paranasal sinuses and mastoid air cells are clear. The calvarium and skull base are int act. There is no mass, hematoma, midline shift, acute infarct. White matter hypodensity is nonspecifi c but suggestive of microvascular ischemic change. The ventricles and sulci demonstrate mild age-rela adriana involutional changes. Impression: No acute intracranial abnormality. Atrophy and microvascular ischemic changes. ACT 112: Negative or not required by law. Electronically signed by: Jered Deleon M.D. 08/01/2019 7:03 AM
[2019-08-01] MEDS ORDERED: ONDANSETRON INJ 2 MG/ML 2 ML VIAL IV PRN (08:00)
[2019-08-01] MEDS ORDERED: ACETAMINOPHEN 325 MG TAB PO PRN (08:00)
[2019-08-01] MEDS ORDERED: ALUMINUM/MAGNESIUM SUSP 30 ML UDC PO PRN (08:00)
[2019-08-01] MEDS ORDERED: MAGNESIUM HYDROXIDE SUSP 30 ML UDC PO PRN (08:00)
[2019-08-01] MEDS: ALBUT/IPRATROP 3MG/0.5MG NEB 3 ML VIAL NEB SCH ×4 (08:21→18:59)
[2019-08-01] MEDS ORDERED: guaiFENesin 600 MG TABCR PO SCH (09:00)
[2019-08-01] MEDS ORDERED: cefTRIAXone SODIUM 2,000 MG in DEXTROSE 5% 50 ML IV SCH (09:00)
[2019-08-01] MEDS ORDERED: methylPREDNISolone 40 MG in SYRINGE 0 ML IV SCH (10:00)
[2019-08-01] MEDS: HEPARIN SOD 5,000 UNIT/0.5 ML VIAL SQ SCH ×2 (10:28→21:25)
[2019-08-01] MEDS: sulfaSALAzine 500 MG TABEC PO SCH ×2 (10:29→17:20)
[2019-08-01] MEDS: ASPIRIN 81 MG ECTAB PO SCH (10:30)
[2019-08-01] MEDS: CLINDAMYCIN 600 MG in DEXTROSE 5% 50 ML IV SCH ×2 (14:27→21:24)
--- NOTE | 2019-08-01 14:39 | Electrocardiogram Report ---
Test Reason : Blood Pressure : / mmHG Vent. Rate : 056 BPM Atrial Rate : 056 BPM P-R Int : 192 ms QRS Dur : 088 ms QT Int : 464 ms P-R-T Axes : 071 072 059 degrees QTc Int : 447 ms Poor data quality, interpretation may be adversely affected Sinus bradycardia Otherwise normal ECG No previous ECGs available Confirmed by Mathieu Waller ([id number]) on 08/01/2019 2:39:12 PM Referred By: REFERRED SELF Confirmed By:Kane Waller
[2019-08-01] MEDS: NICOTINE 21 MG/24 HR TDSY TD SCH (15:30)
--- NOTE | 2019-08-01 16:24 | History & Physical Bridge Note ---
Date of Service August 01, 2019 History & Physical Bridge Note Doing better already this afternoon. PFTs from 01/2018 reviewed. Mod/severe obstructive defect with good improvement with bronchdilator. Does he have COPD vs. asthma? 1) Wheezing already essentially resolved. I will switch him to PO prednisone and probably only needs a 5-day course. Very mild COPD exacerbation. 2) Due to financial reasons, he is not really taking any inhaler consistently. Borrows/gets them from different friends. - Given his unclear asthma vs. COPD diagnosis, his long-term inhaler is a bit unclear. Should he be on an ICS vs. a LAMA? He has few symptoms at baseline, so possibly he could be discharged on Combivent or albuterol only with repeat PFTs in 2-4 weeks once he's better. 3) He will require clindamycin on discharge for a tooth infection. I reached out to [facility] for low-cost dental services as he cannot afford a root canal and does not have dental insurance. 4) His chest pain was not convincing to me as cardiac in nature. Seemed more "tightness" from breathing and then jaw pain from his tooth. Troponins negative and echo looks great. Will defer further cardiac work-up. Overall, he is doing quite well. I think discharge tomorrow is possible with his dental and breathing issues addressed.
[2019-08-02] MEDS: CLINDAMYCIN 600 MG in DEXTROSE 5% 50 ML IV SCH (05:05)
[2019-08-02 07:35] LABS: BUN Creatinine Ratio 22.5 (10-20); Calcium 8.5 mg/dl (8.5-10.1); Creatinine Clr Calc Pharmacy 110.6 ml/min; Est GFR (African American) 115.1; Est GFR (Non-African American) 99.3
[2019-08-02] MEDS: ALBUT/IPRATROP 3MG/0.5MG NEB 3 ML VIAL NEB SCH ×2 (07:39→11:23)
[2019-08-02] MEDS: HEPARIN SOD 5,000 UNIT/0.5 ML VIAL SQ SCH (08:12)
[2019-08-02] MEDS: sulfaSALAzine 500 MG TABEC PO SCH (08:13)
[2019-08-02] MEDS: ASPIRIN 81 MG ECTAB PO SCH (08:15)
[2019-08-02] MEDS: NICOTINE 21 MG/24 HR TDSY TD SCH (08:15)
[2019-08-02] MEDS ORDERED: predniSONE 20 MG TAB PO SCH (09:00)
[2019-08-02] MEDS ORDERED: FLUTICASONE/VILANTEROL 100/25MCG 14 PUFFS/INHALER INH SCH (11:30)
--- NOTE | 2019-08-02 11:51 | Discharge Summary ---
Date of Service August 02, 2019 Admission HPI Per Admitting Provider The patient is a 69-year-old male with a past medical history including kidney mass, inflammatory arthritis, COPD, carpal tunnel syndrome, hernia cerebri and tobacco use disorder. He presents to the emergency department with complaint of decreased chest tightness and dyspnea on exertion, pain and swelling in the left lower jaw, and decreased checker stocker strength in the left hand over the past 12 hours. He denies any recent trauma. He does have a history of inflammatory arthritis for which he takes sulfasalazine and prednisone. He does also continue to smoke tobacco. He denies any productive cough. He does not take aspirin. Discharge Data Allergies Allergy/AdvReac Type Severity Reaction Status Date / Time No Known Allergies Allergy Unknown Unverified 08/01/19 04:18 Consultations 08/01/19 05:20 ED Decision to Admit Stat 08/01/19 08:00 Consult Case Management - Discharge Planning Routine Ordered Studies 08/01/19 03:24 CT head/brain wo con Urgent Hospital Course (1) Chest tightness: Chest tightness- Differential includes cardiac, pulmonary, and arthritic. The patient will be admitted to telemetry for serial cardiac enzymes, serial EKG's, cardiac rhythm monitoring and a 2-D echocardiogram with Dopplers. (2) COPD exacerbation: Admit to monitored bed. Given Solu-Medrol 125 mg IV in the ED, and continued at 40 mg IV every 8 hours. Duonebs every 4 hours while awake and every 2 hours when necessary. Ceftriaxone 1 g IV daily. Clindamycin 600 mg IV every 8 hours. Guaifenesin extended release 600 mg p.o. twice daily (3) Dental infection: Treat with ceftriaxone and clindamycin IV as above (4) Hyponatremia: Sodium 128 upon admission, with range 128-136, with previous isolated value 128 on 09/14/2017. Check serum and urine osmolality. May be secondary to prednisone use. Repeat laboratories in a.m. (5) Carpal tunnel syndrome: History of previous carpal tunnel release surgery. His decreased checker stocker strength and decreased sensation follow the first 3 digits on his left hand. There is some swelling of the MCPs of those digits, which may be contributing to and/or causing his symptoms as well. The symptoms do not appear to be cardiac related. (6) Inflammatory arthritis: Has swelling of the first 3 MCPs as noted above. Continue with sulfasalazine 1000 mg p.o. twice daily. Hold prednisone. We will see how much benefit he gets from the methylprednisolone IV which we have used to treat his lungs. (7) Tobacco use disorder, continuous: Counseling cessation discussed. Discharge Plan Discharge Items Patient Disposition: Home - Self-Care Reason For Visit: COPD EXACERBATION,CHEST PAIN,DENTAL INFECTION Discharge Diagnosis: 1. COPD exacerbation - improving 2. chest pain - no evidence of heart attack; likely musculoskeletal chest wall pain from coughing, etc 3. dental infection, left mandibular tooth - follow-up with dentist or oral surgeon needed 4. inflammatory arthritis - follow-up with rheumatology needed Activity: As commented below Activity Comment: gradually increase activities over the next 5-7 days Non-emergency contact: Primary Care Provider Call non-emergency contact if: you have any medication questions, your symptoms worsen and you have a fever Follow-up/Referrals: Lorenzo Wong MD [Primary Care Provider] - 08/07/19 12:15 pm (see Dr Wong within 5-7 days ) Jareth Holley MD [Physician] - (see Dr Holley, [facility] - first available appointment; dx - inflammatory arthritis ) Torrey De La Garza DMD [Physician] - (see Dr De La Garza, first available appointment, for dental infection) Diet: Heart Healthy Diet Texture: Dental soft (bite-sized) Addtl Attending Provider Instructions: You were treated for COPD exacerbation and left tooth infection. Your breathing improved with steroids, nebulizer treatments, and time. You will need follow-up for your arthritis condition, your breathing, and your tooth in the next few weeks/months. Recommendations - 1. take a prednisone taper - start this TOMORROW on 08/03/19. A new bottle of prednisone with taper instructions was sent to [facility]. 2. take amoxicillin-clavulanate antibiotic - 1 tab twice daily for 10 days. Start this TONIGHT. Script sent to [facility] for you. 3. eat plenty of yogurt over the next 10 days to help prevent diarrhea from the antibiotics. 4. take ventolin HFA inhaler - 2 puffs every 4-6 hours as needed for cough/wheezing/shortness of breath. Sample given. A printed script was also given for future use. 5. take breo inhaler 1 puff daily until the sample we provide runs out. Rinse your mouth with water after its use. Spit the water out when you rinse. 6. please try to quit smoking if possible. 7. follow-up --- see separate section. Return to [facility] if -- * you have worsening shortness of breath * you have fevers over 100.5 degrees * you have severe diarrhea * you have worsening tooth pain/jaw pain * any other concerns Pending Studies at Discharge: No Stand-Alone Forms: [facility], Smoking Cessation Medications and DC Order Prescriptions: New albuterol sulfate [Ventolin HFA] 90 mcg/actuation Hfa Aerosol Inhaler 2 puff inhalation Q6H PRN (Reason: cough, wheeze) Qty: 18 RF: 1 Breo Ellipta 100-25 mcg/dose Blister With Device 1 ea inhalation DAILY Qty: 28 RF: 0 amoxicillin-pot clavulanate [Augmentin] 875-125 mg tablet 1 tab PO BID 10 Days Qty: 20 RF: 0 Continued tadalafil [Cialis] 5 mg tablet 5 mg PO DAILY Qty: 30 RF: 2 sulfasalazine 500 mg tablet,delayed release (DR/EC) 1,000 mg PO BID RF: 0 Changed prednisone 5 mg tablet 5 mg PO DIRECTED Qty: 60 RF: 0 Discharge Orders: Discharge Order (Routine); Ordered 08/02/19 Ordered By: Jb Allen Admission Data Admit Date/Time: 08/01/19 05:38 Attending Provider: Jb Allen Admit Provider: Sacha Torrez Primary Care Provider: Lorenzo Wong Other Providers: Alberto Guido Coding Diagnoses Chest tightness R07.89 COPD exacerbation J44.1 Dental infection K04.7 Hyponatremia E87.1 Carpal tunnel syndrome G56.00 Inflammatory arthritis M19.90 Tobacco use disorder, continuous F17.209
[2019-08-02] MEDS ORDERED: ALBUTEROL HFA 8 GM INHALER INH SCH (12:00)
--- NOTE | 2019-08-02 14:56 | Electrocardiogram Report ---
Test Reason : Blood Pressure : / mmHG Vent. Rate : 069 BPM Atrial Rate : 069 BPM P-R Int : 172 ms QRS Dur : 088 ms QT Int : 438 ms P-R-T Axes : 077 077 074 degrees QTc Int : 469 ms Normal sinus rhythm Normal ECG When compared with ECG of 01-AUG-2019 03:24, No significant change was found Confirmed by Mathieu Waller ([id number]) on 08/02/2019 2:56:32 PM Referred By: REFERRED SELF Confirmed By:Kane Waller
== END 2019-08-02 12:50 | disposition home or self-care (01) | DRG 191 ==
LOC: ED 03:01 → 2S 05:38 → SUATTDRO 05:38 → 2S 07:35

== ENCOUNTER 2023-10-26 22:03 | Inpatient (IN) ==
[2023-10-26] MEDS: LORazepam 1 MG TAB SL STA (23:22)
[2023-10-26] MEDS: ALBUT/IPRATROP 3MG/0.5MG NEB 3 ML VIAL NEB STA ×2 (23:23→23:44)
[2023-10-26] MEDS: methylPREDNISolone 125 MG/2 ML VIAL IV STA (23:23)
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
[2023-10-27 00:10] LABS: Base Excess VBG -3.6 mEq/L; HCO3 VBG 22 mmol/L; Oxygen Saturation VBG 99.8 %; PCO2 VBG 38 mmHg (38-50); PO2 VBG 131 mmHg; pH VBG 7.36 (7.36-7.41)
[2023-10-27 00:20] LABS: Basophils # (auto) 0.07 K/uL (0.00-0.20); Basophils % (auto) 0.6 %; Eosinophils # (auto) 0.04 K/uL (0.00-0.50); Eosinophils % (auto) 0.4 %; Hematocrit (blood only) 39.8 % (42.0-52.0); Hemoglobin 13.7 g/dl (14.0-18.0); Immature Granulocytes # (auto) 0.04 K/uL (0.01-0.20); Immature Granulocytes % (auto) 0.4 %; Lymphocytes # (auto) 1.68 K/uL (1.20-3.40); Lymphocytes % (auto) 15.1 %; Mean Corpuscular Hemoglobin 32.2 pg (25.0-34.0); Mean Corpuscular Hgb Conc 34.4 g/dL (32.0-36.0); Mean Corpuscular Volume 93.4 fL (80.0-100.0); Mean Platelet Volume 9.5 fL (9.4-12.4); Monocytes # (auto) 0.89 K/uL (0.11-0.59); Neutrophils # (auto) 8.42 K/uL (1.40-6.50); Neutrophils % (auto) 75.5 %; Platelet Count 222 K/uL (130-400); RDW Coefficient of Variation 13.4 % (11.5-14.5); Red Blood Count 4.26 M/uL (4.70-6.10); White Blood Count 11.14 K/ul (4.8-10.8)
[2023-10-27 00:41] LABS: BUN Creatinine Ratio 25.9 (10-20); Calcium 8.5 mg/dl (8.6-10.3); Creatinine Clr Calc Pharmacy 123.7 ml/min; Est GFR (African American) 121.6 ml/min; Est GFR (Non-African American) 104.9 ml/min; Troponin I High Sensitivity 4.9 pg/ml (0-20)
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
[2023-10-27] MEDS ORDERED: ONDANSETRON INJ 2 MG/ML 2 ML VIAL IV PRN (04:30)
[2023-10-27] MEDS ORDERED: ALBUTEROL 0.5% NEB SOLN 2.5 MG/0.5 ML VIAL NEB PRN (04:30)
[2023-10-27] MEDS ORDERED: ACETAMINOPHEN 325 MG TAB PO PRN (04:30)
[2023-10-27] MEDS: ALBUT/IPRATROP 3MG/0.5MG NEB 3 ML VIAL NEB SCH (05:11)
--- NOTE | 2023-10-27 07:16 | XRay Report ---
XR chest 1V portable HISTORY: Shortness of breath. COMPARISON: Chest 10/26/2023. FINDINGS: No pleural effusions. No pneumothorax. The heart is normal in size. Mild interstitial thick ening the lung bases, unchanged. This is likely chronic. No evidence for pulmonary edema. IMPRESSION: No significant change compared to the prior study. No acute process. ACT 112: Negative or not required by law. Electronically signed by: Jered Deleon M.D. 10/27/2023 7:15 AM
--- NOTE | 2023-10-27 08:42 | Hospitalist Progress Note ---
Date of Service October 27, 2023 Assessment & Plan (1) COPD exacerbation: Plan: 73yo male presenting with ongoing shortness of breath. Patient with history of COPD, ongoing tobacco use. No report of URI symptoms or allergies preceding the SOB. Adequate oxygenation now on 3L NC. Saturations have been 90% or more. -DuoNeb q 4 hours -Albuterol q 2 hours PRN -Solumedrol 40mg IV BID -Supplemental O2 as needed - goal saturation 88-92% -Azithromycin -Guaifenesin and Flutter valve -Nicotine patch -Encourage cessation - counseling ordered -Patient may benefit from outpatient PFTs Plan GERD - chronic. stable -Continue Protonix Inflammatory polyarthritis - chronic. stable -continue sulfasalazine Admission and Anticipated Discharge Date Admission Date: October 27, 2023 Results & Data Results & Data Vital Signs (Past 12 Hours) Vital Signs Temp Pulse Pulse Pulse Resp BP BP 10/27/23 07:45 97.9 F 79 18 130/70 10/27/23 07:38 98 H 16 10/27/23 05:09 78 17 10/27/23 04:30 10/27/23 04:03 97.9 F 78 18 136/70 10/27/23 02:52 84 10/27/23 02:30 78 13 10/27/23 02:30 116/64 10/27/23 02:01 86 19 10/27/23 01:30 85 18 10/27/23 01:30 131/65 10/27/23 01:01 94 H 19 10/27/23 01:00 133/58 L 10/27/23 00:58 89 21 10/27/23 00:30 95 H 17 10/27/23 00:30 136/61 10/27/23 00:03 88 23 10/27/23 00:03 151/79 H 10/27/23 00:02 88 22 10/26/23 23:30 61 19 10/26/23 23:30 124/67 10/26/23 23:00 119/59 L 10/26/23 23:00 64 27 H 10/26/23 22:48 64 12 10/26/23 22:48 119/67 10/26/23 22:48 64 10/26/23 22:47 62 20 10/26/23 22:06 97.9 F 71 22 128/71 10/26/23 22:03 Pulse Ox O2 Del Method O2 Flow Rate 10/27/23 07:45 96 Nasal Cannula 3 10/27/23 07:38 98 Nasal Cannula 3 10/27/23 05:09 96 Nasal Cannula 3 10/27/23 04:30 Nasal Cannula 3 10/27/23 04:03 96 Nasal Cannula 3 10/27/23 02:52 10/27/23 02:30 99 Nasal Cannula 2 10/27/23 02:30 10/27/23 02:01 96 Nasal Cannula 2 10/27/23 01:30 93 10/27/23 01:30 10/27/23 01:01 90 10/27/23 01:00 10/27/23 00:58 91 10/27/23 00:30 92 10/27/23 00:30 10/27/23 00:03 97 10/27/23 00:03 10/27/23 00:02 96 10/26/23 23:30 100 10/26/23 23:30 10/26/23 23:00 10/26/23 23:00 97 10/26/23 22:48 96 10/26/23 22:48 10/26/23 22:48 10/26/23 22:47 97 10/26/23 22:06 94 Room Air 10/26/23 22:03 Room Air PG Care Time/CCT Total # of Minutes Spent Total Time Spent with Patient: Total time spent is greater than 50% in coordination of care (as documented) at patient's floor/unit and/or counseling patient: Coding Diagnoses COPD exacerbation J44.1
[2023-10-27] MEDS: PANTOprazole 40 MG TAB PO SCH (08:54)
[2023-10-27] MEDS: guaiFENesin 600 MG TABCR PO SCH (08:55)
[2023-10-27] MEDS: NICOTINE 14 MG/24 HR PATCH TD SCH (08:56)
[2023-10-27] MEDS: FOLIC ACID 1 MG TAB PO SCH (08:59)
[2023-10-27] MEDS: AZITHROMYCIN 500 MG in DEXTROSE 5% 250 ML IV ONE (09:01)
[2023-10-27] MEDS: sulfaSALAzine 500 MG TABEC PO SCH (09:06)
[2023-10-27] MEDS: methylPREDNISolone 40 MG in SYRINGE 0 ML IV SCH (10:03)
--- NOTE | 2023-10-27 16:33 | Electrocardiogram Report ---
Test Reason : Blood Pressure : / mmHG Vent. Rate : 067 BPM Atrial Rate : 067 BPM P-R Int : 186 ms QRS Dur : 086 ms QT Int : 468 ms P-R-T Axes : 085 049 055 degrees QTc Int : 494 ms Normal sinus rhythm Low voltage QRS Cannot rule out Anterior infarct , age undetermined Abnormal ECG When compared with ECG of 26-OCT-2023 14:47, Premature ventricular complexes are no longer Present Premature atrial complexes are no longer Present Confirmed by Lorenzo Carter ([id number]) on 10/27/2023 4:32:42 PM Referred By: REFERRED SELF Confirmed By:Lorenzo Carter
--- NOTE | 2023-10-27 16:48 | Discharge Summary ---
Discharge Summary Date of Service October 27, 2023 Admission HPI Per Admitting Provider 73yo male with history of COPD, ongoing tobacco use presenting with shortness of breath. Patient reports he was in his usual state of health until yesterday AM when he developed shortness of breath. He has been unable to catch his breath, unable to sleep. He has been taking Albuterol nebulizer treatments at home with minimal relief. He has a dry cough as well as wheezing and chest congestion. No report of fever, chills, chest pain, nausea/vomiting or hemoptysis. He was seen in the ER earlier today with this complaint. He had a negative CXR and laboratory workup. He was ultimately discharged home with Prednisone, Albuterol HFA and Azithromycin. Patient returned to the ER later in the evening with progressively worsening symptoms. No additional complaints at this time. Patient reports he has never been hospitalized with COPD before. ER Course: Albuterol Principal Dx & Hospital Course #1 = Principal Diagnosis (1) COPD exacerbation: 73yo male presenting with shortness of breath. Patient with history of COPD, ongoing tobacco use. No report of URI symptoms or allergies preceding the SOB. Saturations have been 90% or more since admission. . -Albuterol q 2 hours PRN -Solumedrol 40mg taper to po prednisone -Azithromycin -Encourage cessation - counseling offered and pt willing to try to quit -strongly recommended outpt pulmonary consult, Plan GERD - chronic. stable -Continue Protonix Inflammatory polyarthritis - chronic. stable -continue sulfasalazine Discharge Exam pt is without complaints, good air movement, no wheezes no cough Updated Medication List Medication Instructions Recorded Confirmed Type albuterol sulfate 0.63 mg/3 mL 0.63 mg (3 mL) inhalation QID PRN 02/15/23 10/27/23 Rx solution for nebulization shortness of breath or wheezing #90 mL sulfasalazine 500 mg 500 mg PO DAILY chronic 02/15/23 10/27/23 Rx tablet,delayed release inflammation #60 tabs tadalafil 5 mg tablet (Cialis) 5 mg PO HS bph #30 tabs 02/15/23 10/27/23 Rx pantoprazole 40 mg tablet,delayed 40 mg PO DAILY Barretts esophagus 03/10/23 10/27/23 Rx release (Protonix) #90 tabs cyanocobalamin (vitamin B-12) 1,000 mcg PO DAILY #30 caps 08/11/23 10/27/23 Rx 1,000 mcg capsule folic acid 1 mg tablet 1 mg PO DAILY 10/07/23 10/27/23 History tiotropium bromide 1.25 2 puff inhalation DAILY PRN 10/25/23 10/27/23 Rx mcg/actuation mist for inhalation Shortness Of Breath #4 grams (Spiriva Respimat) albuterol sulfate 90 mcg/actuation 2 inha inhalation QID PRN 10/26/23 10/27/23 Rx aerosol inhaler shortness of breath or wheezing #6.7 grams azithromycin 250 mg tablet See Rx Instructions PO .COMPLEX #6 10/26/23 10/27/23 Rx tabs prednisone 50 mg tablet 50 mg PO DAILY 5 days #5 tabs 10/26/23 10/27/23 Rx prednisone 10 mg tablet 10 mg PO DIRECTED #40 tabs 10/27/23 Rx prednisone 5 mg tablet 2.5 - 5 mg PO HS 10/27/23 10/27/23 History Hospital Stay Data Consultations 10/27/23 00:50 ED Decision to Admit Stat Pending Results Patient Have Any Pending Studies at Discharge: No Discharge Instructions Given to Patient (Per Discharging Provider) please finish tapering dose of steroids follow up with Dr Wong and consider a referral to interactive digital media specialist start and complete Azithromycin as previously prescribed Total Time Total Time Spent Total Time Spent (In Minutes): It required greater than 30 minutes to prepare this patient for discharge. Coding Level of Care Code 45472 INP/OBS DISCH >30 MIN Diagnoses COPD exacerbation J44.1
[2023-10-28] MEDS ORDERED: AZITHROMYCIN 250 MG in DEXTROSE 5% 250 ML IV SCH (09:00)
== END 2023-10-27 17:40 | disposition home or self-care (01) | DRG 192 ==
LOC: ED 22:03 → INTOOBSV 10-27 02:11 → SUATTDRO 10-27 02:11 → OBSVTOIN 10-27 02:11 → 3W 10-27 02:11